=== PATIENT | male | born 1960 | race Hispanic/Latino ===

== ENCOUNTER 2018-08-01 11:08 | Day surgery (SDC) | payer OTHER ==
[2018-08-01] MEDS ORDERED: ZOFRAN IV NR (11:30)
--- NOTE | 2018-08-01 11:45 | Anesthesia Consultation ---
Anesthesia Consult and Med Hx Date of service: 08/01/18 - Airway Anesthetic Teeth Evaluation: Good ROM Head & Neck: Adequate Mental/Hyoid Distance: Adequate Mallampati Class: Class I Intubation Access Assessment: Probably Good - Pulmonary Exam CTA: Yes - Cardiac Exam Cardiac Exam: RRR - Pre-Operative Health Status ASA Pre-Surgery Classification: ASA3 Proposed Anesthetic Plan: General - Pulmonary Hx Smoking: Yes (Former) Hx Respiratory Symptoms: No Hx Sleep Apnea: No - Cardiovascular System Hx Hypertension: Yes (took antihypertensives today) Hx Heart Attack/AMI: No Hx Percutaneous Transluminal Coronary Angioplasty (PTCA): No Hx Cardia Arrhythmia: No - Central Nervous System CVA: No Hx Back Pain: Yes Hx Psychiatric Problems: No - Gastrointestinal Hx Gastroesophageal Reflux Disease: Yes - Endocrine Hx Renal Disease: No Hx Liver Disease: No Hx Non-Insulin Dependent Diabetes: Yes Hx Thyroid Disease: No - Other Systems Hx Alcohol Use: Yes (Occas) Hx Cancer: No - Additional Comments Anesthesia Medical History Comments: No hx anesthetic complications. Complains of nausea (no vomiting) x1 week associated with stone.
--- NOTE | 2018-08-01 11:45 | Anesthesia Day of Surgery ---
Anesthesia Day of Surgery - Day of Surgery Patient Examined: Yes Patient H&P Reviewed: Yes Patient is NPO: Yes
[2018-08-01] MEDS: SUBLIMAZE IV PRN ×4 (11:48→16:30)
[2018-08-01] MEDS ORDERED: ZOFRAN ONE ×2 (11:54→13:14)
[2018-08-01] MEDS ORDERED: TRANSDERM-SCOP TD NR (12:00)
[2018-08-01] MEDS ORDERED: VERSED IV NR (12:00)
[2018-08-01] MEDS ORDERED: LACTATED RINGERS 1,000 ML IV SCH (12:00)
[2018-08-01] MEDS ORDERED: ANCEF/STERILE WATER 2 GM/20 ML 2 GM/20 ML SYRINGE IV ONE (12:18)
[2018-08-01] MEDS ORDERED: ANCEF/STERILE WATER 2 GM/20 ML IV NR (12:36)
[2018-08-01] MEDS ORDERED: SUBLIMAZE ONE ×2 (13:01→13:32)
[2018-08-01] MEDS ORDERED: DIPRIVAN 10 MG/ML IV ONE (13:01)
[2018-08-01] MEDS ORDERED: NEO SYNEPHRINE ONE (13:14)
[2018-08-01] MEDS ORDERED: WATER FOR IRRIG STERILE IR ONE (13:30)
--- NOTE | 2018-08-01 14:04 | Short Stay Summary ---
Short Stay Documentation Date of service: 08/01/18 - History H&P: obtained from office - Allergies and Medications Current Medications: Allergies morphine Allergy (Verified 07/31/18 16:50) Hives, itching oxycodone Allergy (Verified 07/31/18 16:50) Severe nausea Home Medications Medication Instructions Recorded Confirmed Last Taken Type Gabapentin [Neurontin] 400 mg PO BID 07/31/18 07/31/18 07/31/18 18:00 History Olmesartan Medoxomil [Benicar] 40 mg PO DAILY 07/31/18 07/31/18 08/01/18 04:00 History Omeprazole 40 mg PO DAILY 07/31/18 07/31/18 07/31/18 18:00 History Sitagliptin Phos/Metformin HCl 1 tab PO BID 07/31/18 07/31/18 07/31/18 18:00 History [Janumet XR 50-1,000 mg] amLODIPine [Norvasc] 10 mg PO DAILY 07/31/18 07/31/18 08/01/18 04:00 History cloNIDine [Catapres] 0.1 mg PO DAILY PRN 07/31/18 07/31/18 07/31/18 18:00 History traMADol [Ultram] 50 mg PO Q6HR PRN 07/31/18 07/31/18 07/31/18 18:00 History Active Medications Cefazolin Sodium (Ancef/Sterile Water 2 Gm/20 Ml) 2 gm IV PREOP NR Stop: 08/01/18 23:00 Fentanyl (Sublimaze) 50 mcg IV Q5MIN PRN PRN Reason: Pain , Severe (7-10) Stop: 08/01/18 23:59 Lactated Ringer's (Lactated Ringers) 1,000 mls @ 100 mls/hr IV DIRECT [place] Stop: 08/01/18 23:59 Last Admin: 08/01/18 12:05 Dose: 100 mls/hr Documented by: Midazolam HCl (Versed) 2 mg IV PREOP NR Stop: 08/01/18 23:59 Last Admin: 08/01/18 11:52 Dose: 2 mg Documented by: Ondansetron HCl (Zofran) 4 mg IV PREOP NR Stop: 08/01/18 23:59 Last Admin: 08/01/18 11:47 Dose: 4 mg Documented by: Scopolamine (Transderm-Scop) 1 each TD PREOP NR Stop: 08/04/18 11:59 Last Admin: 08/01/18 11:55 Dose: 1 each Documented by: - Physical exam General appearance: no acute distress - Brief post op/procedure progress note Date of procedure: 08/01/18 Pre-op diagnosis: left uret stone 5mm Post-op diagnosis: other (lt uret stone, uret stricture, obst, hydro) Procedure: cysto candace rpg , left ureteroscopy, stent 6x28 staged for future URS after stent 2wks Anesthesia: GETA Findings: ureteral stx, stone Surgeon: RUSH FOFANA Estimated blood loss: minimal Pathology: none Condition: stable - Hospital course Hospital course: or pacu home - Disposition Condition at discharge: Good Disposition: DC-01 TO HOME OR SELFCARE Short Stay Discharge Plan Activity: advance as tolerated Diet: advance as tolerated Follow up with: RUSH FOFANA MD [Staff Physician] - 7 Days
--- NOTE | 2018-08-01 15:05 | Fluoroscopy Report ---
Retrograde pyelogram: Left ureteral calculus. Contrast is injected into the distal right ureter with good opacification of the ureter and intrarenal collecting systems. No persistent filling defects identified. Injected contrast on the left side demonstrated good opacification of a normal distal half of the ureter to the superior margin of L3. No contrast passed above this level and there is a question of a calculus adjacent to the L3 transverse process. A cystoscope with wires were passed into the collecting system. There is partial opacification of the mid and upper left system but the inferior collecting portion was not opacified. A nephroureteral stent was left in place. Impression: Normal right collecting system. Questionable left ureteral calculus identified on available images. Limited imaging evaluation of left collecting system.
[2018-08-01] MEDS ORDERED: ZOFRAN IV ONE (16:30)
[2018-08-01] MEDS ORDERED: NORCO 5/325 PO PRN (16:53)
[2018-08-01 18:44] VITALS: BP 141/77
--- NOTE | 2018-08-13 11:05 | Event Note ---
Date: 08/13/18 Kym lizarraga [id number]
--- NOTE | 2018-08-13 12:43 | Operative Report ---
PREOPERATIVE DIAGNOSIS: Left ureteral 5 mm stone. POSTOPERATIVE DIAGNOSIS: Left ureteral stone, ureteral stricture, obstruction, hydro. PROCEDURE: Cystoscopy bilateral RPG, left ureteroscopy, dilation, left stent 6 x 28 staged for future ureteroscopy and stent after a couple of weeks. ANESTHESIA: General. FINDINGS: Ureteral stricture and stone. SURGEON: Rocky Shaw M.D. ANESTHESIA: General. ESTIMATED BLOOD LOSS: Minimal. PATHOLOGY: None. CONDITION: Stable. CLINICAL INDICATIONS: The patient was counseled on RCBA, antibiotics and SCD. The patient with significant pain, scheduled for this procedure. DESCRIPTION OF PROCEDURE: Transferred to OR suite in supine position, anesthesia dorsal lithotomy, prepped and draped in standard fashion. A 22-E[place]ian scope passed, normal bulbar urethra, moderately enlarged lateral lobes entering the bladder. Pancystoscopy, no tumors. Right retrograde pyelogram within normal limits. Left retrograde demonstrated filling defect and hydroureter. Glidewire passed adjacent up to the left ureter up to the left renal pelvis. Rigid scope passed. We were able to pass this up just below the stone, but not to the stone. There seemed to be a stenosed or strictured area, unable to push this to the stone. This was removed. We used the 8/10 dilator, it was passed and did dilate the ureter. Next, we passed a flexible scope over a second wire that had been passed. We were still unable to pass this up to the stone. It appeared to be a strictured stenosed area just below the stone. At this point, the wire was backloaded on the cystoscope. After the ureteroscope was removed, a 6 x 28 double-J stent was placed under direct and fluoroscopic visualization on the string and stent was removed, there was nice proximal J, nice distal J within the bladder, bladder drained. The patient awakened and transferred to PACU in good and stable condition. JOB# [id number] ATS/NTS
== END 2018-08-01 17:20 | disposition home or self-care (01) ==
LOC: OR 11:08
PROVIDERS: ATTEND Urology
DX: N20.1 Calculus of ureter (principal); N13.5 Crossing vessel and stricture of ureter without hydronephrosis; E78.00 Pure hypercholesterolemia, unspecified; I10 Essential (primary) hypertension; K21.9 Gastro-esophageal reflux disease without esophagitis; M06.9 Rheumatoid arthritis, unspecified; E11.9 Type 2 diabetes mellitus without complications; Z72.89 Other problems related to lifestyle; Z88.8 Allergy status to other drugs, medicaments and biological substances; Z88.5 Allergy status to narcotic agent; Z79.899 Other long term (current) drug therapy; Z87.891 Personal history of nicotine dependence; Z98.890 Other specified postprocedural states
CPT/HCPCS: 52332; 52344; 74420; 82962; A4217; C1758; C1769; C2617; J0690; J2250; J2370; J2405; J2704; J3010; J7120; Q9967